=== PATIENT | male | born 1985 | race Caucasian/White ===

== ENCOUNTER 2017-07-19 21:49 | Emergency (ER) | payer OTHER ==
[2017-07-19 21:49] VITALS: BMI 27.1
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
[2017-07-20 00:35] VITALS: BP 141/89; PULSE 96; RESP 18; TEMP 98; O2SAT 100
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
== END 2017-07-20 02:25 | disposition home or self-care (01) ==
LOC: H.ER 21:49
DX: M25.512 Pain in left shoulder (principal); V43.52XA Car driver injured in collision with other type car in traffic accident, initial encounter; Y92.410 Unspecified street and highway as the place of occurrence of the external cause